=== PATIENT | male | born 1995 | race Caucasian/White ===

== ENCOUNTER → 2017-10-21 | Outpatient (CLI) | payer OTHER ==
[2017-10-21 12:01] LABS: Basophils # (A) 0.1 k/uL (0-0.2); Basophils % (A) 1 %; Eosinophils # (A) 0.1 k/uL (0-0.7); Eosinophils % (A) 3 %; HCT 41.6 % (39.0-53.0); HGB 13.6 gm/dL (13.0-17.5); Lymphocytes # (A) 1.7 k/uL (1.0-4.8); Lymphocytes % (A) 42 %; MCH 28.9 pg (25.0-35.0); MCHC 32.7 g/dL (31.0-37.0); MCV 88.5 fL (80.0-100.0); Mean Platelet Volume 7.2; Monocytes # (A) 0.3 k/uL (0-1.0); Monocytes % (A) 8 %; Neutrophils # (A) 1.8 k/uL (1.3-7.7); Neutrophils % (A) 44 %; Platelet Count 227 k/uL (150-450); RDW 13.3 % (11.5-15.5); WBC 4.1 k/uL (3.8-10.6)
[2017-10-21 12:20] LABS: Anion Gap 11 mmol/L; Blood Urea Nitrogen 23 mg/dL (9-20); Calcium 9.8 mg/dL (8.4-10.2); Carbon Dioxide 29 mmol/L (22-30); Chloride 102 mmol/L (98-107); Glucose 82 mg/dL (74-99); Potassium 4.6 mmol/L (3.5-5.1); Sodium 142 mmol/L (137-145)
== END | disposition home or self-care (01) ==
LOC: LABPAT 11:30
PROVIDERS: ATTEND Urology
DX: Z01.812 Encounter for preprocedural laboratory examination (principal); C64.2 Malignant neoplasm of left kidney, except renal pelvis; Z79.899 Other long term (current) drug therapy
CPT/HCPCS: 36415; 80048; 85025

== ENCOUNTER 2017-10-28 05:52 | Inpatient (IN) | payer BC, OTHER ==
[2017-10-21 15:37] VITALS: BMI 23.7
[~2017-10-28 05:52] MED LIST: DEXAMETHASONE SOD PHOSPHATE 10 MG/ML 1 ML VIAL IV ONE; MIDAZOLAM 2 MG/2 ML VIAL IV PRN; ONDANSETRON 4 MG/2 ML VIAL IVP ONE; Pre Op ABX Message 1 EACH MISC MISCELLANE ONE; SCOPOLAMINE 1.5MG/72HR PATCH TRANSDERM ONE
[2017-10-28] MEDS: LACTATED RINGERS 1,000 ML IV SCH (06:49)
[2017-10-28] MEDS ORDERED: LIDOCAINE 1% 20 ML VIAL (10MG/ML) FOR IV START INTRADERMA ONE (06:50)
[2017-10-28] MEDS ORDERED: ceFAZolin 1,000 MG in DEXTROSE/WATER 1 50ML.BAG IVPB ONE (07:30)
[2017-10-28] MEDS ORDERED: HEPARIN SODIUM,PORCINE 5,000 UNIT/ML 1 ML VIAL SQ ONE (09:33)
[2017-10-28] MEDS ORDERED: LIDOCAINE 1% INJ 10MG/ML (20 ML MDV) ONE (10:03)
[2017-10-28] MEDS ORDERED: GLYCOPYRROLATE 0.2 MG/ML 2 ML VIAL ONE (10:03)
[2017-10-28] MEDS ORDERED: MORPHINE SULFATE 10 MG/ML SYRINGE ONE (10:03)
[2017-10-28] MEDS ORDERED: ROCURONIUM BROMIDE 10 MG/ML 10 ML VIAL IV ONE (10:03)
[2017-10-28] MEDS ORDERED: PROPOFOL 10 MG/ML 20 ML VIAL IV ONE (10:03)
[2017-10-28] MEDS ORDERED: fentaNYL (PF) 50 MCG/ML 2 ML AMP ONE (10:03)
[2017-10-28] MEDS ORDERED: MIDAZOLAM 2 MG/2 ML VIAL ONE (10:03)
[2017-10-28] MEDS ORDERED: SUCCINYLCHOLINE CHLORIDE 100 MG/5 ML SYR IV ONE (10:03)
[2017-10-28] MEDS ORDERED: NEOSTIGMINE 1 MG/ML 10 ML VIAL ONE (10:03)
[2017-10-28] MEDS ORDERED: SODIUM CHLORIDE 0.9% 50 ML with ceFAZolin 2,000 MG IV ONE ×2 (10:15)
[2017-10-28] MEDS: fentaNYL (PF) 50 MCG/ML 2 ML AMP IV PRN ×2 (11:40→12:04)
--- NOTE | 2017-10-28 11:45 | P.OP ---
Date of Procedure: 10/28/17 Preoperative Diagnosis: non functioning left kidney Postoperative Diagnosis: non functioning left kidney Procedure(s) Performed: robotic left simple nephrectomy Implants: none Anesthesia: SHAZIAA Surgeon: Gerri Quiñones Estimated Blood Loss (ml): 5 IV fluids (ml): 1,000 Urine output (ml): 400 Pathology: other (left kidney) Condition: stable Disposition: PACU Indications for Procedure: non functioning kidney Operative Findings: Large hydronephrotic kidney with non dilated ureter. no perinephric inflammation. Description of Procedure: After informed consent was received and confirmation of preop antibiotics, the patient was brought back to the operating room. After induction of orotracheal general anesthesia,the patient was placed on agel pad in the full flank position. All pressure points were padded, axillary roll placed as well as proper leg positioning for the flank position. We then taped the patient into position making sure that the patient was completely secured onto the table. After prepping and draping in the usual sterile fashion, Veress needle was used to gain abdominal insufflation. After abdominal insufflation to 20 mm Hg, a 8mm camera port followed by two 8 mm robotic arms, a 12 mm periumbilical port was placed without difficulty. After this was satisfactorily placed, the robot was docked into place. Next, the colon was mobilized medially along the white line of Toldt and after medialization of the bowels, the tail of gerota's fascia was identified anterior to the psoas minor tendon. The ureter and gonadal vessels were then identified and used to trace up to the level of the renal hilum. Superiorly, splenic attachments, including the lieno renal and phrenico-colic ligaments were taken down and the spleen and pancreas was retracted and reflected medially. The hilar fat was carefully dissected off the renal vessels and progression of this dissection identified a large singe renal vein and a single renal artery. The gonadal vessels were not spared. The adrenal vessels were left alone and the adrenals were left in the patient as a nice plane was developed between the kidney and adrenals. The vessels were controlled with a 60 cm endoGIA stapler and the hilar bed was inspected under low pressure pneumoinsufflation for bleeding.The dissection was then carried superiorly across the upper pole of the kidney using monopolar scissors and bipolar forceps taking care to coagulate all gonadal vessels. Once the upper pole was freed, the incision was carried down laterally dissecting the lateral attachments of the kidney. The kidney was then freed completely except for the ureter, which was clipped and divided at the lower pole. The specimen was retreived with a 15 mm endocatch bag. The field was inspected for bleeding and was confirmed to be dry. A ANNE was not left in place. The robot was then de-docked and the specimen was then removed through the sub- umbilical port, which was extended slightly to remove the specimen in its entirety. Skin was closed with subcuticular running stitch, Mastisol, and Steri- Strips. The patient will be awoken from general anesthesia having tolerated the procedure well and will be brought out to the recovery room and then admitted for further observation until stable to go home.
[2017-10-28] MEDS ORDERED: ONDANSETRON 4 MG/2 ML VIAL IVP PRN (12:04)
[2017-10-28] MEDS: KETOROLAC 30 MG/ML 1 ML VIAL IVP PRN ×3 (12:07→23:23)
[2017-10-28] MEDS: MEPERIDINE 50 MG/ML SYRINGE IVP ONE ×2 (12:28→12:41)
[2017-10-28] MEDS ORDERED: ACETAMINOPHEN IV (For NPO) 1,000 MG in EMPTY BAG 1 BAG IVPB ONE (16:45)
[2017-10-28] MEDS: DEXTROSE 5%-0.45% NACL 1,000 ML IV SCH (17:35)
[2017-10-28] MEDS: ACETAMINOPHEN TAB 325 MG TAB PO PRN (22:14)
[2017-10-28] MEDS: HEPARIN SODIUM,PORCINE 5,000 UNIT/ML 1 ML VIAL SQ SCH (22:15)
[2017-10-29] MEDS: DEXTROSE 5%-0.45% NACL 1,000 ML IV SCH ×2 (00:40→07:31)
[2017-10-29 01:53] VITALS: RESP 16
[2017-10-29] MEDS: KETOROLAC 30 MG/ML 1 ML VIAL IVP PRN (06:17)
[2017-10-29] MEDS: ACETAMINOPHEN TAB 325 MG TAB PO PRN (06:18)
[2017-10-29 08:28] VITALS: BP 125/56; PULSE 50; TEMP 96.8
--- NOTE | 2017-10-29 08:47 | P.DS ---
Providers Date of admission: 10/28/17 05:52 Expected date of discharge: 10/29/17 Attending physician: Gerri Quiñones Primary care physician: Oliver Krafthven [facility] Course: The patient is a 21-year-old male with a nonfunctional left kidney secondary to hydronephrosis. The patient was admitted for the purpose of robotically assisted simple left nephrectomy. The patient underwent the procedure on the date of admission without incident. He remained comfortable and afebrile and was discharged on the morning following surgery. At that time his incisions appeared to be uninflamed. His only complaint was some slight discomfort in the right shoulder area. He denied any pain or numbness in his right arm. Procedures: Robotically assisted laparoscopic left nephrectomy 10/28/2017 Patient Condition at Discharge: Good Plan - Discharge Summary Discharge Rx Participant: No New Discharge Prescriptions: New Acetaminophen-Codeine 300-30mg [Tylenol w/codeine #3] 1 tab PO Q6H PRN #8 tablet PRN Reason: Pain Discharge Medication List Acetaminophen-Codeine 300-30mg [Tylenol w/codeine #3] 1 tab PO Q6H PRN #8 tablet 10/29/17 [Rx] Follow up Appointment(s)/Referral(s): Jarad Mariee MD [STAFF PHYSICIAN] - 10 Days Discharge Disposition: HOME SELF-CARE
[2017-10-29] MEDS: HEPARIN SODIUM,PORCINE 5,000 UNIT/ML 1 ML VIAL SQ SCH (10:07)
--- NOTE | 2017-10-29 16:18 | PN ---
PROGRESS NOTE DATE OF SERVICE: 10/29/2017. CHIEF COMPLAINT: Status post left nephrectomy. HISTORY OF PRESENT ILLNESS: This gentleman is doing well. He has had no problems. He is fairly comfortable and expects to go home today. He is not nauseated. He has had no fever chills. PHYSICAL EXAM: Head, ears, eyes, nose, mouth, and throat are unchanged. Chest is clear. Cardiac exam is normal. The abdomen is flat. Quintanilla catheter is in place. IMPRESSION: Status post left nephrectomy. PLAN: He expects to go home today. MMODL / IJN: [id number] /
--- NOTE | 2017-10-29 19:03 | CONS ---
CONSULTATION CHIEF COMPLAINT: Left kidney mass. HISTORY OF PRESENT ILLNESS: This 21-year-old white male was brought in for an elective left nephrectomy for hydronephrosis and loss of renal function. REVIEW OF SYSTEMS: He is healthy otherwise. He has had no headaches, neurologic problems, problems with vision or hearing, shortness of breath, chest pain, cough, heart disease, hypertension, nausea, vomiting, hematemesis, melena, hematochezia, renal failure, hematuria, diabetes, etc. PAST MEDICAL HISTORY, FAMILY HISTORY, PERSONAL AND SOCIAL HISTORIES: Otherwise unremarkable and noncontributory and can be found in his admitting summary. PHYSICAL EXAM: Blood pressure is 133/70 with a pulse of 64, respirations of 15 and he is afebrile. In general, he appeared to be well developed, well nourished, no acute distress. Skin color is normal. Skin is warm, dry. Lymph nodes not enlarged. Head, ears, eyes, nose, mouth, and throat were normal. Neck veins were not distended. Thyroid is not enlarged. Chest is clear. Cardiac exam is normal. Abdomen is soft, nontender. Extremities are normal. Neurological is intact. IMPRESSION: Nonfunctioning nephrotic left kidney. RECOMMENDATIONS: None. He is doing well. MMODL / IJN: [id number] /
== END 2017-10-29 12:00 | disposition home or self-care (01) | DRG 661 ==
LOC: 2ORMAIN 05:52 → 3SUR 11:59
PROVIDERS: ADMIT Urology; ATTEND Urology
PROC: 8E0W4CZ Robotic Assisted Procedure of Trunk Region, Percutaneous Endoscopic Approach (ICD-10-PCS; 2017-10-28)
PROC: 0TT14ZZ Resection of Left Kidney, Percutaneous Endoscopic Approach (ICD-10-PCS; principal; 2017-10-28 07:30)
DX: N28.9 Disorder of kidney and ureter, unspecified (principal); N23 Unspecified renal colic; N13.6 Pyonephrosis
CPT/HCPCS: 86850; 86900; 86901; 86920; 88307

== ENCOUNTER → 2018-01-16 | Outpatient (CLI) | payer SELFPAY ==
[2018-01-16 11:59] LABS: Basophils % (A) 1 %; Eosinophils # (A) 0.1 k/uL (0-0.7); Eosinophils % (A) 1 %; HCT 43.2 % (39.0-53.0); HGB 14.6 gm/dL (13.0-17.5); Lymphocytes # (A) 1.7 k/uL (1.0-4.8); Lymphocytes % (A) 34 %; MCH 30.5 pg (25.0-35.0); MCHC 33.7 g/dL (31.0-37.0); MCV 90.4 fL (80.0-100.0); Mean Platelet Volume 6.8; Monocytes # (A) 0.3 k/uL (0-1.0); Monocytes % (A) 6 %; Neutrophils # (A) 2.7 k/uL (1.3-7.7); Neutrophils % (A) 56 %; Platelet Count 214 k/uL (150-450); RBC 4.78 m/uL (4.30-5.90); RDW 13.7 % (11.5-15.5); WBC 4.9 k/uL (3.8-10.6)
[2018-01-16 12:14] LABS: ALT 30 U/L (21-72); AST 21 U/L (17-59); Albumin 4.5 g/dL (3.5-5.0); Alkaline Phosphatase 75 U/L (38-126); Anion Gap 9 mmol/L; Blood Urea Nitrogen 20 mg/dL (9-20); C Reactive Protein <5.0 mg/L (<10.0); Carbon Dioxide 30 mmol/L (22-30); Chloride 102 mmol/L (98-107); Cholesterol 181 mg/dL (<200); Creatine Kinase 153 U/L (55-170); Glucose 87 mg/dL (74-99); HDL Cholesterol 50 mg/dL (40-60); LDL Cholesterol,Calculated 112 mg/dL (0-99); Magnesium 1.7 mg/dL (1.6-2.3); Phosphorus 4.5 mg/dL (2.5-4.5); Potassium 4.6 mmol/L (3.5-5.1); Sodium 141 mmol/L (137-145); Total Bilirubin 0.6 mg/dL (0.2-1.3); Total Protein 7.4 g/dL (6.3-8.2); Triglycerides 94 mg/dL (<150); Uric Acid 6.4 mg/dL (3.5-8.5)
[2018-01-16 14:16] LABS: Erythrocyte Sedimentation Rate 2 mm/hr (0-15)
[2018-01-16 16:48] LABS: Parathyroid Hormone Intact 26.7 pg/mL (14.0-72.0)
[2018-01-16 16:58] LABS: DNA Double-Stranded NEGATIVE (NEGATIVE)
[2018-01-16 17:48] LABS: Vitamin D 25 Hydroxy 45.9 ng/mL (30.0-100.0)
[2018-01-16 21:06] LABS: Hemoglobin A1C 5.6 % (4.0-6.0)
[2018-01-17 13:56] LABS: C-ANCA <1:20 Titer (<1:20); P-ANCA <1:20 Titer (<1:20)
[2018-01-17 14:11] LABS: Complement C3 89.4 mg/dL (80.0-207.0)
== END | disposition home or self-care (01) ==
LOC: LABWHC1 10:35
PROVIDERS: ATTEND Internal Medicine
DX: N18.3 Chronic kidney disease, stage 3 (moderate) (principal); D89.89 Other specified disorders involving the immune mechanism, not elsewhere classified; E78.5 Hyperlipidemia, unspecified; Z90.5 Acquired absence of kidney
CPT/HCPCS: 36415; 80053; 80061; 82306; 82550; 83036; 83516; 83735; 83970; 84100; 84443; 84550; 85025; 85652; 86038; 86140; 86160; 86162; 86225; 86255

== ENCOUNTER 2023-12-01 11:53 | Emergency (ER) | payer OTHER ==
--- NOTE | 2023-12-01 12:47 | ED ---
Abdominal Pain HPI - General Chief Complaint: Abdominal Pain Stated Complaint: Stomach pain Time Seen by Provider: 12/01/23 12:46 Source: patient, RN notes reviewed Mode of arrival: ambulatory Limitations: no limitations - History of Present Illness Initial Comments: 28-year-old male presented to the ER with a chief complaint of abdominal pain. He states this been ongoing for the past 4 days. He describes it as a sharp pain that is intermittent. He denies any known triggers. He states he has had a decreased appetite due to the pain and mildly nauseous. He denies any episodes of emesis. Denies any constipation/diarrhea, fevers, chills, chest p ain, shortness of breath or urinary complaints. - Related Data Previous Rx's Medication Instructions Recorded Cyclobenzaprine [Flexeril] 10 mg PO TID PRN #15 tab 08/06/21 predniSONE 50 mg PO DAILY #5 tab 08/06/21 Allergies Allergy/AdvReac Type Severity Reaction Status Date / Time No Known Allergies Allergy Verified 12/01/23 12:26 Review of Systems ROS Statement: Those systems with pertinent positive or pertinent negative responses have been documented in the HPI. ROS Other: All systems not noted in ROS Statement are negative. Past Medical History Past Medical History: Renal Disease Additional Past Medical History / Comment(s): kidney History of Any Multi-Drug Resistant Organisms: None Reported Additional Past Surgical History / Comment(s): eye surgery retinal detachment, kidney removed Past Anesthesia/Blood Transfusion Reactions: No Reported Reaction Past Psychological History: No Psychological Hx Reported Smoking Status: Never smoker Past Alcohol Use History: Occasional Past Drug Use History: None Reported - Past Family History Mother Family Medical History: No Reported History General Exam Limitations: no limitations General appearance: alert, in no apparent distress Respiratory exam: Present: normal lung sounds bilaterally. Absent: respiratory distress, wheezes, rales, rhonchi, stridor Cardiovascular Exam: Present: regular rate, normal rhythm, normal heart sounds. Absent: systolic murmur, diastolic murmur, rubs, gallop, clicks GI/Abdominal exam: Present: soft, normal bowel sounds. Absent: distended, tenderness, guarding, rebound, rigid Skin exam: Present: warm, dry, intact, normal color. Absent: rash Course Vital Signs 12/01/23 12/01/23 12:24 15:08 Temperature 98.5 F Pulse Rate 68 64 Respiratory 16 16 Rate Blood Pressure 131/78 113/64 O2 Sat by Pulse 97 98 Oximetry Medical Decision Making - Medical Decision Making Was pt. sent in by a medical professional or institution (LEEAL Mayers, MANUFACTURING SPECIALIST, urgent care, hospital, or long-term...) When possible be specific @ -No Did you speak to anyone other than the patient for history (EMS, parent, family, police, friend...)? What history was obtained from this source @ -No Did you review nursing and triage notes (agree or disagree)? Why? @ -I reviewed and agree with nursing and triage notes Were old charts reviewed (outside hosp., previous admission, EMS record, old EKG, old radiological studies, urgent care reports/EKG's, long-term records)? Report findings @ -No old charts were reviewed Differential Diagnosis (chest pain, altered mental status, abdominal pain women, abdominal pain men, vaginal bleeding, weakness, fever, dyspnea, syncope, headache, dizziness, GI bleed, back pain, seizure, CVA, palpatations, mental health, musculoskeletal)? @ -[Differential Abdominal Pain Men: Appendicitis, cholecystitis, diverticulosis, ischemic bowel, pancreatitis, hepatitis, UTI, gastroenteritis, AAA, incarcerated hernia, bowel obstruction, constipation, inflammatory bowel, hepatitis, peptic ulcer disease, splenic infarction, perforated viscus, testicular torsion, this is not meant to be an all-inclusive list EKG interpreted by me (3pts min.). @ -As above X-rays interpreted by me (1pt min.). @ -None done CT interpreted by me (1pt min.). @ -None done U/S interpreted by me (1pt. min.). @ -Gallbladder ultrasound negative for acute process. There is a 4 mm gallbladder polyp. What testing was considered but not performed or refused? (CT, X-rays, U/S, labs)? Why? @ -None What meds were considered but not given or refused? Why? @ -None Did you discuss the management of the patient with other professionals (professionals i.e. LEELA Mayers, MANUFACTURING SPECIALIST, lab, RT, psych nurse, social work assistant, analytics director, teacher, chief environmental commitment officer, director case management)? Give summary @ -No Was smoking cessation discussed for >3mins.? @ -No Was critical care preformed (if so, how long)? @ -No Were there social determinants of health that impacted care today? How? (Homelessness, low income, unemployed, alcoholism, drug addiction, transportation, low edu. Level, literacy, decrease access to med. care, prison, rehab)? @ -No Was there de-escalation of care discussed even if they declined (Discuss DNR or withdrawal of care, Hospice)? DNR status @ -No What co-morbidities impacted this encounter? (DM, HTN, Smoking, COPD, CAD, Cancer, CVA, ARF, Chemo, Hep., AIDS, mental health diagnosis, sleep apnea, morbid obesity)? @ -Hx renal disease Was patient admitted / discharged? Hospital course, mention meds given and route, prescriptions, significant lab abnormalities, going to OR and other pertinent info. @ -Discharge. 28-year-old male presented to ER with chief complaint of epiga stric/right upper quadrant abdominal pain. History and physical exam completed. Vitals stable. Patient no signs of acute distress and resting comfortably on stretcher. Mild abdominal tenderness to the right upper quadrant with normal bowel sounds. Laboratory studies obtained unremarkable. Patient does have an elevated creatinine at 1.47 which is likely related to history of kidney and renal disease. Urinalysis showed 1+ ketones likely related to patient's decreased oral intake. Gallbladder ultrasound negative for acute process. Patient received 1 L IV fluids and Zofran for symptom control in the ER. Upon reevaluation, patient resting comfortably in exam room no signs of acute distress. Results discussed with patient, all questions answered. Advise close follow-up with GI, referral given. Return parameters discussed. Patient discharged stable condition. Patient verbally expressed understanding and agreement with care plan. Case discussed with ED attending, Dr. Cruz. Undiagnosed new problem with uncertain prognosis? @ -No Drug Therapy requiring intensive monitoring for toxicity (Heparin, Nitro, Insulin, Cardizem)? @ -No Were any procedures done? @ -No Diagnosis/symptom? @ -Abdominal pain Acute, or Chronic, or Acute on Chronic? @ -Acute Uncomplicated (without systemic symptoms) or Complicated (systemic symptoms)? @ -Uncomplicated Side effects of treatment? @ -No Exacerbation, Progression, or Severe Exacerbation? @ -No Poses a threat to life or bodily function? How? (Chest pain, [place], [place], pneumonia, PE, COPD, DKA, ARF, appy, cholecystitis, CVA, Diverticulitis, Homicidal, Suicidal, threat to staff... and all critical care pts) @ -No - Lab Data Result diagrams: 12/01/23 13:06 12/01/23 13:06 Lab Results 12/01/23 12/01/23 12/01/23 Range/Units 13:06 13:06 13:06 WBC 8.5 (3.8-10.6) k/uL RBC 5.10 (4.30-5.90) m/uL Hgb 15.4 (13.0-17.5) gm/dL Hct 48.0 (39.0-53.0) % MCV 94.0 (80.0-100.0) fL MCH 30.1 (25.0-35.0) pg MCHC 32.0 (31.0-37.0) g/dL RDW 12.4 (11.5-15.5) % Plt Count 239 (150-450) k/uL MPV 7.7 Neutrophils % 71 % Lymphocytes % 21 % Monocytes % 5 % Eosinophils % 1 % Basophils % 1 % Neutrophils # 6.1 (1.3-7.7) k/uL Lymphocytes # 1.8 (1.0-4.8) k/uL Monocytes # 0.4 (0-1.0) k/uL Eosinophils # 0.1 (0-0.7) k/uL Basophils # 0.0 (0-0.2) k/uL Sodium 138 (137-145) mmol/L Potassium 4.6 (3.5-5.1) mmol/L Chloride 102 (98-107) mmol/L Carbon Dioxide 30 (22-30) mmol/L Anion Gap 6 mmol/L BUN 16 (9-20) mg/dL Creatinine 1.47 H (0.66-1.25) mg/dL Est GFR (CKD-EPI)AfAm 74 (>60 ml/min/1.73 sqM) Est GFR (CKD-EPI)NonAf 64 (>60 ml/min/1.73 sqM) Glucose 74 (74-99) mg/dL Plasma Lactic Acid Cam (0.7-2.0) mmol/L Calcium 9.4 (8.4-10.2) mg/dL Total Bilirubin 0.6 (0.2-1.3) mg/dL AST 28 (17-59) U/L ALT 39 (4-49) U/L Alkaline Phosphatase 65 (38-126) U/L Total Protein 7.4 (6.3-8.2) g/dL Albumin 4.3 (3.5-5.0) g/dL Amylase 56 (30-110) U/L Lipase 40 (23-300) U/L Urine Color Light Yellow Urine Appearance Clear (Clear) Urine pH 8.0 (5.0-8.0) Ur Specific [place] 1.014 (1.001-1.035) Urine Protein Negative (Negative) Urine Glucose (UA) Negative (Negative) Urine Ketones 1+ H (Negative) Urine Blood Negative (Negative) Urine Nitrite Negative (Negative) Urine Bilirubin Negative (Negative) Urine Urobilinogen 2.0 (<2.0) mg/dL Ur Leukocyte Esterase Negative (Negative) 12/01/23 Range/Units 13:06 WBC (3.8-10.6) k/uL RBC (4.30-5.90) m/uL Hgb (13.0-17.5) gm/dL Hct (39.0-53.0) % MCV (80.0-100.0) fL MCH (25.0-35.0) pg MCHC (31.0-37.0) g/dL RDW (11.5-15.5) % Plt Count (150-450) k/uL MPV Neutrophils % % Lymphocytes % % Monocytes % % Eosinophils % % Basophils % % Neutrophils # (1.3-7.7) k/uL Lymphocytes # (1.0-4.8) k/uL Monocytes # (0-1.0) k/uL Eosinophils # (0-0.7) k/uL Basophils # (0-0.2) k/uL Sodium (137-145) mmol/L Potassium (3.5-5.1) mmol/L Chloride (98-107) mmol/L Carbon Dioxide (22-30) mmol/L Anion Gap mmol/L BUN (9-20) mg/dL Creatinine (0.66-1.25) mg/dL Est GFR (CKD-EPI)AfAm (>60 ml/min/1.73 sqM) Est GFR (CKD-EPI)NonAf (>60 ml/min/1.73 sqM) Glucose (74-99) mg/dL Plasma Lactic Acid Cam 0.8 (0.7-2.0) mmol/L Calcium (8.4-10.2) mg/dL Total Bilirubin (0.2-1.3) mg/dL AST (17-59) U/L ALT (4-49) U/L Alkaline Phosphatase (38-126) U/L Total Protein (6.3-8.2) g/dL Albumin (3.5-5.0) g/dL Amylase (30-110) U/L Lipase (23-300) U/L Urine Color Urine Appearance (Clear) Urine pH (5.0-8.0) Ur Specific [place] (1.001-1.035) Urine Protein (Negative) Urine Glucose (UA) (Negative) Urine Ketones (Negative) Urine Blood (Negative) Urine Nitrite (Negative) Urine Bilirubin (Negative) Urine Urobilinogen (<2.0) mg/dL Ur Leukocyte Esterase (Negative) - EKG Data -: EKG Interpreted by Me EKG Comments: EKG taken at 13: 52 showing a sinus rhythm with no acute ST segment or T wave abnormalities. Ventricular rate 67, CO interval 170, QRS duration 93, QT/QTc 372/388. - Radiology Data Radiology results: report reviewed, image reviewed Disposition Clinical Impression: Abdominal pain Disposition: HOME SELF-CARE Condition: Stable Instructions (If sedation given, give patient instructions): Abdominal Pain (ED) Additional Instructions: Please follow-up with GI. Return to the ER for any new or worsening concerns. Is patient prescribed a controlled substance at d/c from ED?: No Referrals: None,Stated [Primary Care Provider] - 1-2 days Alba Hernandez MD [STAFF PHYSICIAN] - 1-2 days Forms: Area PCPs Time of Disposition: 14:58
[2023-12-01 13:08] VITALS: RESP 16; TEMP 98.5
[2023-12-01] MEDS: SODIUM CHLORIDE 0.9% 1,000 ML IV STA (13:14)
[2023-12-01] MEDS: ONDANSETRON 4 MG/2 ML VIAL IVP STA (13:15)
[2023-12-01 13:32] LABS: Appearance,Urine Clear (Clear); Bilirubin,Urine Negative (Negative); Blood,Urine Negative (Negative); Color,Urine Light Yellow; Glucose,Urine (UA) Negative (Negative); Ketones,Urine 1+ (Negative); Leukocyte Esterase,Urine Negative (Negative); Nitrite,Urine Negative (Negative); Protein,Urine Negative (Negative); Specific Gravity,Urine 1.014 (1.001-1.035)
[2023-12-01 13:40] LABS: Basophils % (A) 1 %; Eosinophils # (A) 0.1 k/uL (0-0.7); Eosinophils % (A) 1 %; HGB 15.4 gm/dL (13.0-17.5); Lymphocytes # (A) 1.8 k/uL (1.0-4.8); Lymphocytes % (A) 21 %; MCH 30.1 pg (25.0-35.0); Mean Platelet Volume 7.7; Monocytes # (A) 0.4 k/uL (0-1.0); Monocytes % (A) 5 %; Neutrophils # (A) 6.1 k/uL (1.3-7.7); Neutrophils % (A) 71 %; Platelet Count 239 k/uL (150-450); RDW 12.4 % (11.5-15.5); WBC 8.5 k/uL (3.8-10.6)
[2023-12-01 13:48] LABS: ALT 39 U/L (4-49); AST 28 U/L (17-59); African American GFR (CKD) 74 (>60 ml/min/1.73 sqM); Albumin 4.3 g/dL (3.5-5.0); Alkaline Phosphatase 65 U/L (38-126); Amylase 56 U/L (30-110); Anion Gap 6 mmol/L; Blood Urea Nitrogen 16 mg/dL (9-20); Calcium 9.4 mg/dL (8.4-10.2); Carbon Dioxide 30 mmol/L (22-30); Chloride 102 mmol/L (98-107); Glucose 74 mg/dL (74-99); Lipase 40 U/L (23-300); Non-African American GFR(CKD) 64 (>60 ml/min/1.73 sqM); Potassium 4.6 mmol/L (3.5-5.1); Sodium 138 mmol/L (137-145); Total Bilirubin 0.6 mg/dL (0.2-1.3); Total Protein 7.4 g/dL (6.3-8.2)
--- NOTE | 2023-12-01 14:26 | US ---
EXAMINATION TYPE: US gallbladder DATE OF EXAM: 12/01/2023 COMPARISON: CT 01/20/2015 CLINICAL INDICATION: Male, 28 years old with history of RUQ pain; x few days; Nausea; Hx left nephrec sacha due to ? Clogged artery TECHNIQUE: Multiple sonographic images of the right upper quadrant are obtained. FINDINGS: EXAM MEASUREMENTS: Liver Length: 12.8 cm Gallbladder Wall: 0.2 cm CBD: 0.4 cm Right Kidney: 15.0 x 5.0 x 7.9 cm ENGAGEMENT LEAD NOTES: Pancreas: wnl Liver: wnl Gallbladder: Polyp noted along with debris with change in patient position measuring up to 4 mm. Evidence for sonographic Ramirez's sign: No CBD: wnl Right Kidney: wnl IMPRESSION: 1. No evidence for acute process. 2. Small gallbladder polyps measuring 4 mm. Consider follow-up in 6 months to ensure stability.
[2023-12-01 15:58] VITALS: BP 113/64; PULSE 64
== END 2023-12-01 15:09 | disposition home or self-care (01) ==
LOC: EC 11:53
DX: K82.4 Cholesterolosis of gallbladder (principal); R94.4 Abnormal results of kidney function studies; Z87.448 Personal history of other diseases of urinary system
CPT/HCPCS: 99284; 96374; 96361; 36415; 93005; 80053; 82150; 83605; 83690; 85025; 81003; 76705; J2405